=== PATIENT | female | born 1985 | race Hispanic/Latino ===

== ENCOUNTER 2018-06-21 20:44 | Inpatient (IN) | payer BC ==
--- NOTE | 2018-06-22 04:28 | ED PDOC ---
HPI: Abdomen Time Seen by Provider: 06/22/18 04:00 Chief Complaint (Nursing): Abnormal Labs Chief Complaint (Provider): Abnormal Labs History Per: Patient History/Exam Limitations: no limitations Onset/Duration Of Symptoms: Days Current Symptoms Are (Timing): Still Present Additional Complaint(s): 33 y/o female with no significant PMHx presents to the ED for evaluation of epigastric abdominal pain associated with nausea, onset two weeks ago. Patient reports of having seen a GI specialist yesterday, had done outpatient labs and was started on golytely prep for an endoscopy and colonoscopy that is scheduled for later today. Patient states that earlier this evening, she had gotten a phone call from her GI specialist who requested her to come to the ER for further evaluation of an elevated lipase in the 1499s. GI specialist was concerned for pancreatitis as per patient. Patient notes pain has improved. Patient states she is not eating because of her impending procedure later today. Patient reports of experiencing mild diarrhea but is attributing it to golytely prep. Patient states symptoms have considerably improved others. Of note, patient reports of typically drinking close to a bottle of wine a day. Denies fever PMD: Tobi Motley Oracle Sql Developer: Dr. Moreno Past Medical History Reviewed: Historical Data, Nursing Documentation, Vital Signs Vital Signs: Last Vital Signs Temp 98.4 F 06/21/18 22:25 Pulse 93 H 06/21/18 22:25 Resp 16 06/21/18 22:25 BP 131/94 H 06/21/18 22:25 Pulse Ox 100 06/21/18 22:25 Primary Care Provider: Tobi Stover - Medical History PMH: No Chronic Diseases - Surgical History Surgical History: No Surg Hx - Family History Family History: States: Unknown Family Hx - Social History Alcohol: > 2 Drinks/Day - Home Medications Home Medications: Ambulatory Orders Medication Instructions Recorded Dextroamphetamine/Amphetamine 10 mg PO DAILY 06/22/18 [Adderall 10 mg Tablet] Dextroamphetamine/Amphetamine 25 mg PO DAILY 06/22/18 [Adderall Xr 25 mg Capsule] - Allergies Allergies/Adverse Reactions: Allergies Allergy/AdvReac Type Severity Reaction Status Date / Time No Known Allergies Allergy Verified 06/21/18 22:25 Review of Systems ROS Statement: Except As Marked, All Systems Reviewed And Found Negative Constitutional: Negative for: Fever Gastrointestinal: Positive for: Nausea, Abdominal Pain, Diarrhea Physical Exam - Reviewed Nursing Documentation Reviewed: Yes Vital Signs Reviewed: Yes - Physical Exam Appears: Positive for: No Acute Distress Head Exam: Positive for: ATRAUMATIC, NORMOCEPHALIC Skin: Positive for: Normal Color, Warm, Dry Eye Exam: Positive for: Normal appearance, EOMI, PERRL Neck: Positive for: Normal, Painless ROM, Supple Cardiovascular/Chest: Positive for: Regular Rate, Rhythm. Negative for: Murmur Respiratory: Positive for: Normal Breath Sounds. Negative for: Respiratory Distress Gastrointestinal/Abdominal: Positive for: Soft, Tenderness (mild epigastric tenderness) Extremity: Positive for: Normal ROM. Negative for: Deformity Neurological/Psych: Positive for: Awake, Alert, Oriented (x3). Negative for: Motor/Sensory Deficits - Laboratory Results Result Diagrams: 06/22/18 01:00 06/22/18 01:00 - ECG O2 Sat by Pulse Oximetry: 100 (RA) Pulse Ox Interpretation: Normal - Critical Care Total Time (In Min): 30 Documented Critical Care: Time excludes all time spent performint seperately billable procedures Medical Decision Making Medical Decision Making: Time: 0154 Impression: 33 y/o female presenting with acute pancreatits Plan: -- Lipase level may be trending down given improvement of symptoms. Repeat laps including lipase level and Gallbladder US ordered. Time: 0408 -- Repeat labs demonstrate no clinical abnormalities except for elevated lipase level that has double from lipase done as an outpatient. In providers opinion, results are still be may be trending down given that she reports little to no symptoms. -- 2 liters of Lactated Ringers ordered for aggressive IV fluid resuscitation. -- Patient referred to Dr. Lerner for admission. CT Abd/Pelvis ordered for further workup. CT SCAN OF THE ABDOMEN AND PELVIS WITH CONTRAST. CLINICAL HISTORY: Pancreatitis. Abnormal labs. TECHNIQUE: Multiple axial and coronal CT images were obtained through the abdomen and pelvis after administration of intravenous contrast material. COMMENTS: Minimal subsegmental atelectatic pulmonary changes in the left lower lobe. Mildly enlarged pancreas. Mild peripancreatic inflammatory fat stranding. Findings are suggestive of mild uncomplicated acute pancreatitis. Mild diffuse thickening of the stomach, probably reactive gastritis. Fluid-filled colon, probably reactive ileus. 2.3 cm right ovarian cyst. Fluid-filled small bowels. The liver is of uniform attenuation without mass or defect. There is no intra or extrahepatic biliary ductal dilatation. The spleen is normal. The gallbladder is within normal limits. There is no evidence of adrenal mass. Both kidneys demonstrate prompt and equal nephrograms. The kidneys are normal in size, shape and configuration. There is no evidence of renal or ureteral mass. No renal or ureteral calculi are identified. There is no hydroureter or hydronephrosis. No evidence for appendicitis. There is no bowel wall thickening. No evidence for small or large bowel obstruction. There is no evidence of abdominal ascites or lymphadenopathy. There is no evidence of intrinsic or extrinsic bladder mass. There is no pelvic ascites or lymphadenopathy. Images of the lung bases show no evidence of pleural or parenchymal mass. There are no pleural effusions. The bony structures are free of lytic or blastic lesions. IMPRESSION: Minimal subsegmental atelectatic pulmonary changes in the left lower lobe. Mildly enlarged pancreas. Mild peripancreatic inflammatory fat stranding. Findings are suggestive of mild uncomplicated acute pancreatitis. Mild diffuse thickening of the stomach, probably reactive gastritis. Fluid-filled colon, probably reactive ileus. 2.3 cm right ovarian cyst. Fluid-filled small bowels. Thank you for your kind referral of this patient. Electronically signed on June 22, 2018 6:27:06 AM EDT by: Lambert Diaz M.D., Certified by MIGDALIA, MSK, Neuroradiology Scribe Attestation: Documented by Zachariah Escobar, acting as a scribe for Best Quintana MD. Provider Scribe Attestation: All medical record entries made by the Scribe were at my direction and personally dictated by me. I have reviewed the chart and agree that the record accurately reflects my personal performance of the history, physical exam, medical decision making, and the department course for this patient. I have also personally directed, reviewed, and agree with the discharge instructions and disposition. Disposition - Clinical Impression Clinical Impression: Pancreatitis, acute - Patient ED Disposition Is Patient to be Admitted: Yes - Disposition Disposition Time: 04:04 Condition: FAIR
[2018-06-22 04:41] LABS: BASO # 0.1 K/uL (0.0-0.2); EOS # 0.3 K/uL (0.0-0.7); HEMOGLOBIN 12.6 g/dL (12.0-16.0); LYMPH # 1.6 K/uL (1.0-4.3); LYMPH % 26.1 % (20.0-40.0); MEAN CELL VOLUME 94.2 fl (81.0-99.0); MEAN CORPUSCULAR HEMOGLOBIN 31.6 pg (27.0-31.0); MEAN CORPUSCULAR HGB CONC 33.5 g/dL (33.0-37.0); MEAN PLATELET VOLUME 7.9 fl (7.2-11.7); MONO # 0.5 K/uL (0.0-0.8); MONO % 8.3 % (0.0-10.0); NEUT # 3.8 K/uL (1.8-7.0); NEUT % 60.6 % (50.0-75.0); RED CELL DISTRIBUTION WIDTH 14.4 % (11.5-14.5); WHITE BLOOD COUNT 6.3 K/uL (4.8-10.8)
[2018-06-22 04:50] LABS: BLOOD UREA NITROGEN 8 mg/dl (7-17); CALCIUM 9.1 mg/dL (8.4-10.2); GFR NON-AFRICAN AMERICAN > 60
[2018-06-22 04:51] LABS: ALB/GLOB RATIO 1.3 (1.0-2.1); ALBUMIN 4.5 g/dL (3.5-5.0); ALT/SGPT 18 U/L (9-52); AST/SGOT 32 U/L (14-36); LIPASE 3027 U/L (23-300); SQUAMOUS EPITHIAL 1 /hpf (0-5); URINE BILIRUBIN NEGATIVE (NEGATIVE); URINE BLOOD SMALL (NEGATIVE); URINE CLARITY CLOUDY (Clear); URINE COLOR YELLOW (YELLOW); URINE GLUCOSE (UA) NEG (NEGATIVE); URINE LEUKOCYTE ESTERASE NEG Leu/uL (Negative); URINE PROTEIN 30 mg/dL (NEGATIVE); URINE UROBILINOGEN 0.2-1.0 mg/dL (0.2-1.0)
[2018-06-22] MEDS ORDERED: Iohexol 300 100 ML IJ ONE (05:33)
[2018-06-22] MEDS ORDERED: Sodium Chloride 0.9% 50 ML IV ONE (05:33)
--- NOTE | 2018-06-22 08:25 | CP.PCM.HP ---
<Vaibhav Arrington - Last Filed: 06/22/18 11:47> History of Present Illness - History of Present Illness History of Present Illness: This is 33 y/o F with No significant PMH admitted to [facility] for evaluation and treatment of Acute Pancreatitis. Patient is c/o epigastric pain with nausea since last 2 weeks and seen GI doctor for outpatient EGD and Colonoscopy. Patient was sent to the ER by GI after found to have high Lipase 1500. Patient currently reports improved pain but reports no appetite, denies any vomiting, diarrhea or fever. Patient denies any dysuria, weakness, cheat pain, SOB or dizziness. PMD: Tobi Motley Senior Controls Analyst: Dr. Moreno PMH: Denies PSH: Denies Allg: NKA Meds: Denies FH: Denies any Hx of GI cancer or pancreatitis SH: 1 bottle of wine daily ER course: VS: Afebrile, Stable Lipase 3017 CT abdo: mild uncomplicated acute pancreatitis Present on Admission - Present on Admission Any Indicators Present on Admission: No Review of Systems - Constitutional Constitutional: absent: Headache, Weakness - EENT Eyes: absent: Blurred Vision Ears: absent: Dizziness Nose/Mouth/Throat: absent: Nasal Congestion - Breasts Breasts: absent: Skin Changes - Cardiovascular Cardiovascular: absent: Chest Pain - Respiratory Respiratory: absent: Cough, Dyspnea, Hemoptysis - Gastrointestinal Gastrointestinal: Abdominal Pain, Nausea. absent: Diarrhea, Vomiting - Genitourinary Genitourinary: absent: Change in Urinary Stream, Dysuria - Musculoskeletal Musculoskeletal: absent: Back Pain, Neck Pain, Tingling - Neurological Neurological: absent: Dizziness, Sensory Deficit, Syncope, Tingling, Tremor, Vertigo, Weakness, Other Visual Disturbances Past Patient History - Past Medical History & Family History Past Medical History?: Yes - Past Social History Smoking Status: Former Smoker - CARDIAC Hx Cardiac Disorders: No - PULMONARY Hx Respiratory Disorders: No - NEUROLOGICAL Hx Neurological Disorder: No - HEENT Hx HEENT Problems: No - RENAL Hx Chronic Kidney Disease: No - ENDOCRINE/METABOLIC Hx Endocrine Disorders: No - HEMATOLOGICAL/ONCOLOGICAL Hx Blood Disorders: No Hx AIDS: No Hx Human Immunodeficiency Virus (HIV): No - INTEGUMENTARY Hx Dermatological Problems: No - MUSCULOSKELETAL/RHEUMATOLOGICAL Hx Musculoskeletal Disorders: No Hx Falls: No - GASTROINTESTINAL Hx Pancreatitis: Yes - GENITOURINARY/GYNECOLOGICAL Hx Genitourinary Disorders: No - PSYCHIATRIC Hx Substance Use: No - SURGICAL HISTORY Hx Surgeries: No - ANESTHESIA Hx Anesthesia: Yes Hx Anesthesia Reactions: No Hx Malignant Hyperthermia: No Has any member of the family had a problem w/ anesthesia?: No Meds Allergies/Adverse Reactions: Allergies Allergy/AdvReac Type Severity Reaction Status Date / Time No Known Allergies Allergy Verified 06/21/18 22:25 Physical Exam - Constitutional Appears: No Acute Distress - Head Exam Head Exam: ATRAUMATIC, NORMAL INSPECTION, NORMOCEPHALIC - Eye Exam Eye Exam: EOMI, Normal appearance, PERRL Pupil Exam: NORMAL ACCOMODATION - ENT Exam ENT Exam: Mucous Membranes Moist - Neck Exam Neck exam: Positive for: Normal Inspection - Respiratory Exam Respiratory Exam: Clear to Auscultation Bilateral, NORMAL BREATHING PATTERN - Cardiovascular Exam Cardiovascular Exam: REGULAR RHYTHM, +S1, +S2 - GI/Abdominal Exam GI & Abdominal Exam: Normal Bowel Sounds, Soft, Tenderness (Epigastric ) - Extremities Exam Extremities exam: Positive for: normal inspection - Back Exam Back exam: NORMAL INSPECTION - Neurological Exam Neurological exam: Alert, CN II-XII Intact, Oriented x3 - Psychiatric Exam Psychiatric exam: Normal Affect - Skin Skin Exam: Normal Color Results - Vital Signs Recent Vital Signs: Last Vital Signs Temp 98.1 F 06/22/18 07:02 Pulse 55 L 06/22/18 07:44 Resp 20 06/22/18 07:44 BP 110/76 06/22/18 07:02 Pulse Ox 99 06/22/18 07:44 - Labs Result Diagrams: 06/22/18 01:00 06/22/18 01:00 Labs: Laboratory Results - last 24 hr 06/22/18 06/22/18 06/22/18 01:00 01:00 01:00 WBC 6.3 RBC 4.00 Hgb 12.6 Hct 37.7 MCV 94.2 MCH 31.6 H MCHC 33.5 RDW 14.4 Plt Count 333 MPV 7.9 Neut % (Auto) 60.6 Lymph % (Auto) 26.1 Phillips % (Auto) 8.3 Eos % (Auto) 4.0 Baso % (Auto) 1.0 Neut # (Auto) 3.8 Lymph # (Auto) 1.6 Phillips # (Auto) 0.5 Eos # (Auto) 0.3 Baso # (Auto) 0.1 Sodium 136 Potassium 4.0 Chloride 98 Carbon Dioxide 27 Anion Gap 15 BUN 8 Creatinine 0.5 L Est GFR ( Amer) > 60 Est GFR (Non-Af Amer) > 60 Random Glucose 81 Calcium 9.1 Total Bilirubin 0.8 AST 32 ALT 18 Alkaline Phosphatase 50 Total Protein 7.9 Albumin 4.5 Globulin 3.4 Albumin/Globulin Ratio 1.3 Lipase 3027 H Urine Color Yellow Urine Clarity Cloudy Urine pH 5.0 Ur Specific [place] 1.023 Urine Protein 30 Urine Glucose (UA) Neg Urine Ketones 20 Urine Blood Small Urine Nitrate Negative Urine Bilirubin Negative Urine Urobilinogen 0.2-1.0 Ur Leukocyte Esterase Neg Urine RBC (Auto) 5 H Urine Microscopic WBC 2 Ur Squamous Epith Cells 1 Assessment & Plan - Assessment and Plan (Free Text) Assessment: A/P: 33 y/o F with No significant PMH admitted to [facility] for evaluation and treatment of Acute Pancreatitis. Acute Pancreatitis - VS: Afebrile, Stable - Lipase 3017 - CT abdo: mild uncomplicated acute pancreatitis - Consult GI, f/u recommendations - NPO, C/w IVF - Monitor Lipase, F/u Abdo U/S - C/w pain management - F/u Lipids - Zofran PRN Case discussed with Dr. Lerner <Gerald Lerner - Last Filed: 06/22/18 11:55> Results - Vital Signs Recent Vital Signs: Last Vital Signs Temp 98.1 F 06/22/18 08:27 Pulse 55 L 06/22/18 08:27 Resp 20 06/22/18 08:27 BP 137/90 06/22/18 08:27 Pulse Ox 99 06/22/18 08:27 - Labs Result Diagrams: 06/22/18 01:00 06/22/18 01:00 Labs: Laboratory Results - last 24 hr 06/22/18 06/22/18 06/22/18 01:00 01:00 01:00 WBC 6.3 RBC 4.00 Hgb 12.6 Hct 37.7 MCV 94.2 MCH 31.6 H MCHC 33.5 RDW 14.4 Plt Count 333 MPV 7.9 Neut % (Auto) 60.6 Lymph % (Auto) 26.1 Phillips % (Auto) 8.3 Eos % (Auto) 4.0 Baso % (Auto) 1.0 Neut # (Auto) 3.8 Lymph # (Auto) 1.6 Phillips # (Auto) 0.5 Eos # (Auto) 0.3 Baso # (Auto) 0.1 Sodium 136 Potassium 4.0 Chloride 98 Carbon Dioxide 27 Anion Gap 15 BUN 8 Creatinine 0.5 L Est GFR ( Amer) > 60 Est GFR (Non-Af Amer) > 60 Random Glucose 81 Calcium 9.1 Total Bilirubin 0.8 AST 32 ALT 18 Alkaline Phosphatase 50 Total Protein 7.9 Albumin 4.5 Globulin 3.4 Albumin/Globulin Ratio 1.3 Triglycerides Cholesterol LDL Cholesterol Direct HDL Cholesterol Lipase 3027 H Urine Color Yellow Urine Clarity Cloudy Urine pH 5.0 Ur Specific [place] 1.023 Urine Protein 30 Urine Glucose (UA) Neg Urine Ketones 20 Urine Blood Small Urine Nitrate Negative Urine Bilirubin Negative Urine Urobilinogen 0.2-1.0 Ur Leukocyte Esterase Neg Urine RBC (Auto) 5 H Urine Microscopic WBC 2 Ur Squamous Epith Cells 1 Alcohol, Quantitative 06/22/18 08:40 WBC RBC Hgb Hct MCV MCH MCHC RDW Plt Count MPV Neut % (Auto) Lymph % (Auto) Phillips % (Auto) Eos % (Auto) Baso % (Auto) Neut # (Auto) Lymph # (Auto) Phillips # (Auto) Eos # (Auto) Baso # (Auto) Sodium Potassium Chloride Carbon Dioxide Anion Gap BUN Creatinine Est GFR ( Amer) Est GFR (Non-Af Amer) Random Glucose Calcium Total Bilirubin AST ALT Alkaline Phosphatase Total Protein Albumin Globulin Albumin/Globulin Ratio Triglycerides 65 Cholesterol 120 LDL Cholesterol Direct 54 HDL Cholesterol 55 Lipase 6005 H Urine Color Urine Clarity Urine pH Ur Specific [place] Urine Protein Urine Glucose (UA) Urine Ketones Urine Blood Urine Nitrate Urine Bilirubin Urine Urobilinogen Ur Leukocyte Esterase Urine RBC (Auto) Urine Microscopic WBC Ur Squamous Epith Cells Alcohol, Quantitative < 10 Assessment & Plan - Assessment and Plan (Free Text) Assessment: Patient was personally seen and examined by me in rounds with residents. Available labs and diagnostic data reviewed. Case, Patient's condition and management plan discussed with residents in rounds. Agree with resident's progress note. Plan: As ordered.
[2018-06-22 09:16] LABS: HDL CHOLESTEROL 55 MG/DL (30-70)
--- NOTE | 2018-06-22 09:25 | CT ---
Date of service: 06/22/2018 PROCEDURE: CT Abdomen and Pelvis with contrast HISTORY: pancreatitis COMPARISON: None. TECHNIQUE: Contrast dose: 85 mL Omnipaque 300 Radiation dose: Total exam DLP = 225.87 mGy-cm. This CT exam was performed using one or more of the following dose reduction techniques: Automated exposure control, adjustment of the mA and/or kV according to patient size, and/or use of iterative reconstruction technique. FINDINGS: LOWER THORAX: Left lung base subsegmental discoid atelectasis LIVER: Apparent mild diffuse hepatic steatosis No gross lesion or ductal dilatation. GALLBLADDER AND BILE DUCTS: Unremarkable. PANCREAS: Mild diffuse prominence-given the clinical history-findings compatible with a swelling/pancreatitis. No gross lesion or ductal dilatation. SPLEEN: Unremarkable. ADRENALS: Unremarkable. No mass. KIDNEYS AND URETERS: Unremarkable. No hydronephrosis. No solid mass. VASCULATURE: Unremarkable. No aortic aneurysm. No aortic atherosclerotic calcification or mural plaque present. BOWEL: Dilated fluid-filled large bowel loops. Small bowel loops not as distended but also with fluid. No obstruction. No gross mural thickening. APPENDIX: Portions visualized appear normal. PERITONEUM: Unremarkable. No free fluid. No free air. LYMPH NODES: Unremarkable. No enlarged lymph nodes. BLADDER: Distended but otherwise unremarkable REPRODUCTIVE: Probable 2.5 cm right ovarian cyst. Smaller follicular appearing cystic changes in the left ovary. BONES: No acute fracture. OTHER FINDINGS: Stomach not particularly distended-however given its degree of distension a diffuse mild gastric mural thickening is a consideration. IMPRESSION: Findings compatible with an uncomplicated pancreatitis. No pancreatic masses. No gross significant appearing phlegmon seen. The fluid filled distended colon, the lesser fluid in the nondistended small bowel and the probable mild gastric mural thickening (yet under distended) may all be reactive to the pancreatitis. Reactive ileus and a mild reactive gastritis is compatible with this. Close clinical follow-up recommended. Other findings as above. Concordant results (preliminary interpretation) provided by [employer].
[2018-06-22 09:27] LABS: LDL CHOLESTEROL 54 mg/dL (0-129)
[2018-06-22 09:39] LABS: LIPASE 6005 U/L (23-300)
[2018-06-22] MEDS: Sodium Chloride 0.9% 1,000 ML IV SCH ×2 (09:55→20:29)
[2018-06-22] MEDS ORDERED: Sodium Chloride 0.9% 1,000 ML IV SCH (11:30)
--- NOTE | 2018-06-22 12:43 | US ---
Date of service: 06/22/2018 HISTORY: ORDER DOWN TIME COMPARISON: CT of the abdomen and pelvis with IV contrast performed 06/22/18 TECHNIQUE: Sonographic evaluation of the right upper quadrant of the abdomen. FINDINGS: LIVER: Measures 15.9 cm in length. Echogenic liver may be seen in setting of hepatic parenchymal disease or fatty infiltration. No focal hepatic mass identified. The main portal vein appears patent with normal directional flow. No intrahepatic bile duct dilatation. GALLBLADDER: No gallstones. No gallbladder wall thickening or pericholecystic edema. Negative sonographic Gan's sign as assessed by the burner shaft. COMMON BILE DUCT: Measures 2 mm. PANCREAS: Not well-visualized. RIGHT KIDNEY: Measures approximately 10.1 x 4.4 x 5.1 cm. No obstructing calculus or hydronephrosis identified. AORTA: Limited visualization appears grossly unremarkable. IVC: Limited visualization appears grossly unremarkable. OTHER FINDINGS: None . IMPRESSION: Echogenic liver may be seen in setting of hepatic parenchymal disease or fatty infiltration. Preliminary impression was provided by [email or web address].
[2018-06-22 15:02] LABS: BARBITURATES, UR NEGATIVE (NEGATIVE); BENZODIAZEPINES, UR NEGATIVE (NEGATIVE); OPIATES, UR NEGATIVE (NEGATIVE); PHENCYCLIDINE, UR NEGATIVE (NEGATIVE)
--- NOTE | 2018-06-22 15:24 | CP.PCM.CON ---
History of Present Illness - History of Present Illness History of Present Illness: 33 yo female admitted with epigastric abdominal pain and elevated lipase. Patient has been having pain since 2 Satturdays ago. Pain radiates to her back. She made an appt to see an MD and had bloodwork done. She was referred to the ER when her lipase came out very high. She drinks a bottle of wine daily though denies any other type of liquor. Her only med is adderall. No recent abdominal trauma or abdominal surgery. No abdominal pain now and she is hungry.. Review of Systems - Constitutional Constitutional: absent: Chills - EENT Eyes: absent: Blurred Vision Nose/Mouth/Throat: absent: Epistaxis - Breasts Breasts: absent: Pain - Cardiovascular Cardiovascular: absent: Chest Pain - Respiratory Respiratory: absent: Dyspnea - Gastrointestinal Gastrointestinal: As Per HPI - Genitourinary Genitourinary: absent: Change in Urinary Stream Past Patient History - Past Medical History & Family History Past Medical History?: Yes - Past Social History Smoking Status: Former Smoker - CARDIAC Hx Cardiac Disorders: No - PULMONARY Hx Respiratory Disorders: No - NEUROLOGICAL Hx Neurological Disorder: No - HEENT Hx HEENT Problems: No - RENAL Hx Chronic Kidney Disease: No - ENDOCRINE/METABOLIC Hx Endocrine Disorders: No - HEMATOLOGICAL/ONCOLOGICAL Hx Blood Disorders: No Hx AIDS: No Hx Human Immunodeficiency Virus (HIV): No - INTEGUMENTARY Hx Dermatological Problems: No - MUSCULOSKELETAL/RHEUMATOLOGICAL Hx Musculoskeletal Disorders: No Hx Falls: No - GASTROINTESTINAL Hx Pancreatitis: Yes - GENITOURINARY/GYNECOLOGICAL Hx Genitourinary Disorders: No - PSYCHIATRIC Hx Substance Use: No - SURGICAL HISTORY Hx Surgeries: No - ANESTHESIA Hx Anesthesia: Yes Hx Anesthesia Reactions: No Hx Malignant Hyperthermia: No Has any member of the family had a problem w/ anesthesia?: No Meds Allergies/Adverse Reactions: Allergies Allergy/AdvReac Type Severity Reaction Status Date / Time No Known Allergies Allergy Verified 06/21/18 22:25 - Medications Medications: Current Medications Acetaminophen (Tylenol 325mg Tab) 650 mg PO Q6 PRN PRN Reason: Pain, Mild (1-3) Acetaminophen (Tylenol 325mg Tab) 650 mg PO Q6 PRN PRN Reason: Fever >100.4 F Enoxaparin Sodium (Lovenox) 40 mg SC DAILY [facility]; Protocol Famotidine (Pepcid) 20 mg PO BID TAWANDA Sodium Chloride (Sodium Chloride 0.9%) 1,000 mls @ 150 mls/hr IV .Q6H40M [facility] Last Admin: 06/22/18 09:55 Dose: 150 mls/hr Sodium Chloride (Sodium Chloride 0.9%) 1,000 mls @ 999 mls/hr IV .Q1H1M [facility] Stop: 06/23/18 11:27 Last Admin: 06/22/18 11:40 Dose: 999 mls/hr Ketorolac Tromethamine (Toradol) 15 mg IVP Q6 PRN PRN Reason: Pain, moderate (4-7) Morphine Sulfate (Morphine) 1 mg IVP Q4 PRN PRN Reason: Pain, severe (8-10) Ondansetron HCl (Zofran Inj) 4 mg IVP Q6 PRN PRN Reason: Nausea/Vomiting Physical Exam - Constitutional Appears: No Acute Distress - Head Exam Head Exam: ATRAUMATIC - Eye Exam Eye Exam: Normal appearance - ENT Exam ENT Exam: Mucous Membranes Moist - Neck Exam Neck exam: Positive for: Normal Inspection - Respiratory Exam Respiratory Exam: Clear to Auscultation Bilateral, NORMAL BREATHING PATTERN - Cardiovascular Exam Cardiovascular Exam: REGULAR RHYTHM, +S1, +S2 - GI/Abdominal Exam GI & Abdominal Exam: Normal Bowel Sounds, Soft, Tenderness Results - Vital Signs Recent Vital Signs: Last Vital Signs Temp 98.1 F 06/22/18 08:27 Pulse 55 L 06/22/18 08:27 Resp 20 06/22/18 08:27 BP 137/90 06/22/18 08:27 Pulse Ox 99 06/22/18 08:27 - Labs Result Diagrams: 06/22/18 01:00 06/22/18 01:00 Labs: Laboratory Results - last 24 hr 06/22/18 06/22/18 06/22/18 01:00 01:00 01:00 WBC 6.3 RBC 4.00 Hgb 12.6 Hct 37.7 MCV 94.2 MCH 31.6 H MCHC 33.5 RDW 14.4 Plt Count 333 MPV 7.9 Neut % (Auto) 60.6 Lymph % (Auto) 26.1 [place] % (Auto) 8.3 Eos % (Auto) 4.0 Baso % (Auto) 1.0 Neut # (Auto) 3.8 Lymph # (Auto) 1.6 [place] # (Auto) 0.5 Eos # (Auto) 0.3 Baso # (Auto) 0.1 Sodium 136 Potassium 4.0 Chloride 98 Carbon Dioxide 27 Anion Gap 15 BUN 8 Creatinine 0.5 L Est GFR ( Amer) > 60 Est GFR (Non-Af Amer) > 60 Random Glucose 81 Calcium 9.1 Total Bilirubin 0.8 AST 32 ALT 18 Alkaline Phosphatase 50 Total Protein 7.9 Albumin 4.5 Globulin 3.4 Albumin/Globulin Ratio 1.3 Triglycerides Cholesterol LDL Cholesterol Direct HDL Cholesterol Lipase 3027 H Urine Color Yellow Urine Clarity Cloudy Urine pH 5.0 Ur Specific [place] 1.023 Urine Protein 30 Urine Glucose (UA) Neg Urine Ketones 20 Urine Blood Small Urine Nitrate Negative Urine Bilirubin Negative Urine Urobilinogen 0.2-1.0 Ur Leukocyte Esterase Neg Urine RBC (Auto) 5 H Urine Microscopic WBC 2 Ur Squamous Epith Cells 1 Urine Opiates Screen Urine Methadone Screen Ur Barbiturates Screen Ur Phencyclidine Scrn Ur Amphetamines Screen U Benzodiazepines Scrn U Oth Cocaine Metabols U Cannabinoids Screen Alcohol, Quantitative 06/22/18 06/22/18 08:40 13:55 WBC RBC Hgb Hct MCV MCH MCHC RDW Plt Count MPV Neut % (Auto) Lymph % (Auto) [place] % (Auto) Eos % (Auto) Baso % (Auto) Neut # (Auto) Lymph # (Auto) [place] # (Auto) Eos # (Auto) Baso # (Auto) Sodium Potassium Chloride Carbon Dioxide Anion Gap BUN Creatinine Est GFR ( Amer) Est GFR (Non-Af Amer) Random Glucose Calcium Total Bilirubin AST ALT Alkaline Phosphatase Total Protein Albumin Globulin Albumin/Globulin Ratio Triglycerides 65 Cholesterol 120 LDL Cholesterol Direct 54 HDL Cholesterol 55 Lipase 6005 H Urine Color Urine Clarity Urine pH Ur Specific [place] Urine Protein Urine Glucose (UA) Urine Ketones Urine Blood Urine Nitrate Urine Bilirubin Urine Urobilinogen Ur Leukocyte Esterase Urine RBC (Auto) Urine Microscopic WBC Ur Squamous Epith Cells Urine Opiates Screen Negative Urine Methadone Screen Negative Ur Barbiturates Screen Negative Ur Phencyclidine Scrn Negative Ur Amphetamines Screen Positive H U Benzodiazepines Scrn Negative U Oth Cocaine Metabols Negative U Cannabinoids Screen Negative Alcohol, Quantitative < 10 - Imaging and Cardiology CT scan - abdomen Status: Image reviewed by me, Report reviewed by me US - abdomen Status: Image reviewed by me, Report reviewed by me Assessment & Plan (1) Pancreatitis, acute Assessment and Plan: Acute pancreatitis. Risk factors include significant wine intake. Has been on Sdderall. Feels better now.despite rising Lipase level. Will advance to solid low fat diet. Maintain IV hydration and adequate analgesia. Labs in the AM> Status: Acute
[2018-06-22 16:39] VITALS: O2SAT 100
[2018-06-22] MEDS ORDERED: Pneumococcal 23-Valent Vaccine IM ONE (21:00)
[2018-06-23] MEDS: Sodium Chloride 0.9% 1,000 ML IV SCH (03:15)
[2018-06-23 04:48] VITALS: PULSE 76
[2018-06-23 07:27] LABS: BASO # 0.1 K/uL (0.0-0.2); BASO % 0.6 % (0.0-2.0); EOS # 0.3 K/uL (0.0-0.7); EOS % 3.3 % (0.0-4.0); HEMOGLOBIN 11.8 g/dL (12.0-16.0); LYMPH # 1.4 K/uL (1.0-4.3); MEAN CELL VOLUME 95.2 fl (81.0-99.0); MEAN CORPUSCULAR HEMOGLOBIN 31.9 pg (27.0-31.0); MEAN CORPUSCULAR HGB CONC 33.5 g/dL (33.0-37.0); MEAN PLATELET VOLUME 7.5 fl (7.2-11.7); MONO # 0.8 K/uL (0.0-0.8); MONO % 9.3 % (0.0-10.0); NEUT % 70.8 % (50.0-75.0); NRBC % 0.1 % (0.0-0.0); RBC 3.69 Mil/uL (3.80-5.20); RED CELL DISTRIBUTION WIDTH 14.2 % (11.5-14.5); WHITE BLOOD COUNT 8.5 K/uL (4.8-10.8)
[2018-06-23 07:44] LABS: ALB/GLOB RATIO 1.1 (1.0-2.1); ALBUMIN 3.4 g/dL (3.5-5.0); ALT/SGPT 23 U/L (9-52); AST/SGOT 21 U/L (14-36); BLOOD UREA NITROGEN 5 mg/dl (7-17); CALCIUM 8.2 mg/dL (8.4-10.2); GFR NON-AFRICAN AMERICAN > 60
[2018-06-23 08:04] LABS: LIPASE 5258 U/L (23-300)
[2018-06-23] MEDS ORDERED: Pneumococcal 23-Valent Vaccine IM ONE (08:40)
[2018-06-23] MEDS ORDERED: Enoxaparin 40 mg Syringe SC SCH (09:00)
[2018-06-23 09:05] VITALS: BP 125/78; RESP 20; TEMP 98.6
--- NOTE | 2018-06-23 09:07 | CP.PCM.DIS ---
Provider - Provider Date of Admission: 06/22/18 04:00 Attending physician: Gerald Lerner MD Primary care physician: PMD: Tobi Motley Laborer Hoisting: Dr. Moreno Consults: 06/22/18 08:58 Gastroenterology Consult Routine Comment: Consulting Provider: Antwan Dumont Consulting Physician: Antwan Dumont Reason for Consult: Acute pancreatitis Time Spent in preparation of Discharge (in minutes): 40 Diagnosis - Discharge Diagnosis (1) Pancreatitis, acute Status: Acute (2) Alcohol use Status: Chronic Hospital Course - Lab Results Lab Results: Most Recent Lab Values WBC 8.5 K/uL (4.8-10.8) 06/23/18 07:05 RBC 3.69 Mil/uL (3.80-5.20) L 06/23/18 07:05 Hgb 11.8 g/dL (12.0-16.0) L 06/23/18 07:05 Hct 35.2 % (34.0-47.0) 06/23/18 07:05 MCV 95.2 fl (81.0-99.0) 06/23/18 07:05 MCH 31.9 pg (27.0-31.0) H 06/23/18 07:05 MCHC 33.5 g/dL (33.0-37.0) 06/23/18 07:05 RDW 14.2 % (11.5-14.5) 06/23/18 07:05 Plt Count 305 K/uL (130-400) 06/23/18 07:05 MPV 7.5 fl (7.2-11.7) 06/23/18 07:05 Neut % (Auto) 70.8 % (50.0-75.0) 06/23/18 07:05 Lymph % (Auto) 16.0 % (20.0-40.0) L 06/23/18 07:05 [place] % (Auto) 9.3 % (0.0-10.0) 06/23/18 07:05 Eos % (Auto) 3.3 % (0.0-4.0) 06/23/18 07:05 Baso % (Auto) 0.6 % (0.0-2.0) 06/23/18 07:05 Neut # (Auto) 6.0 K/uL (1.8-7.0) 06/23/18 07:05 Lymph # (Auto) 1.4 K/uL (1.0-4.3) 06/23/18 07:05 [place] # (Auto) 0.8 K/uL (0.0-0.8) 06/23/18 07:05 Eos # (Auto) 0.3 K/uL (0.0-0.7) 06/23/18 07:05 Baso # (Auto) 0.1 K/uL (0.0-0.2) 06/23/18 07:05 Sodium 137 mmol/l (132-148) 06/23/18 07:05 Potassium 4.0 MMOL/L (3.6-5.0) 06/23/18 07:05 Chloride 104 mmol/L (98-107) 06/23/18 07:05 Carbon Dioxide 28 mmol/L (22-30) 06/23/18 07:05 Anion Gap 9 (10-20) L 06/23/18 07:05 BUN 5 mg/dl (7-17) L 06/23/18 07:05 Creatinine 0.5 mg/dl (0.7-1.2) L 06/23/18 07:05 Est GFR ( Amer) > 60 06/23/18 07:05 Est GFR (Non-Af Amer) > 60 06/23/18 07:05 Random Glucose 97 mg/dL (65-105) 06/23/18 07:05 Calcium 8.2 mg/dL (8.4-10.2) L 06/23/18 07:05 Phosphorus 3.3 mg/dl (2.5-4.5) 06/23/18 07:05 Magnesium 1.8 MG/DL (1.6-2.3) 06/23/18 07:05 Total Bilirubin 0.5 mg/dl (0.2-1.3) 06/23/18 07:05 AST 21 U/L (14-36) 06/23/18 07:05 ALT 23 U/L (9-52) 06/23/18 07:05 Alkaline Phosphatase 37 U/L (38-126) L D 06/23/18 07:05 Total Protein 6.3 G/DL (6.3-8.2) 06/23/18 07:05 Albumin 3.4 g/dL (3.5-5.0) L D 06/23/18 07:05 Globulin 3.0 gm/dL (2.2-3.9) 06/23/18 07:05 Albumin/Globulin Ratio 1.1 (1.0-2.1) 06/23/18 07:05 Triglycerides 65 mg/DL (0-149) 06/22/18 08:40 Cholesterol 120 mg/dL (0-199) 06/22/18 08:40 LDL Cholesterol Direct 54 mg/dL (0-129) 06/22/18 08:40 HDL Cholesterol 55 MG/DL (30-70) 06/22/18 08:40 Lipase 5258 U/L (23-300) H 06/23/18 07:05 Urine Color Yellow (YELLOW) 06/22/18 01:00 Urine Clarity Cloudy (Clear) 06/22/18 01:00 Urine pH 5.0 (5.0-8.0) 06/22/18 01:00 Ur Specific [place] 1.023 (1.003-1.030) 06/22/18 01:00 Urine Protein 30 mg/dL (NEGATIVE) 06/22/18 01:00 Urine Glucose (UA) Neg mg/dL (NEGATIVE) 06/22/18 01:00 Urine Ketones 20 mg/dL (NEGATIVE) 06/22/18 01:00 Urine Blood Small (NEGATIVE) 06/22/18 01:00 Urine Nitrate Negative (NEGATIVE) 06/22/18 01:00 Urine Bilirubin Negative (NEGATIVE) 06/22/18 01:00 Urine Urobilinogen 0.2-1.0 mg/dL (0.2-1.0) 06/22/18 01:00 Ur Leukocyte Esterase Neg Amy/uL (Negative) 06/22/18 01:00 Urine RBC (Auto) 5 /hpf (0-3) H 06/22/18 01:00 Urine Microscopic WBC 2 /hpf (0-5) 06/22/18 01:00 Ur Squamous Epith Cells 1 /hpf (0-5) 06/22/18 01:00 Urine Opiates Screen Negative (NEGATIVE) 06/22/18 13:55 Urine Methadone Screen Negative (NEGATIVE) 06/22/18 13:55 Ur Barbiturates Screen Negative (NEGATIVE) 06/22/18 13:55 Ur Phencyclidine Scrn Negative (NEGATIVE) 06/22/18 13:55 Ur Amphetamines Screen Positive (NEGATIVE) H 06/22/18 13:55 U Benzodiazepines Scrn Negative (NEGATIVE) 06/22/18 13:55 U Oth Cocaine Metabols Negative (NEGATIVE) 06/22/18 13:55 U Cannabinoids Screen Negative (NEGATIVE) 06/22/18 13:55 Alcohol, Quantitative < 10 mg/dl (0-10) 06/22/18 08:40 - Hospital Course Hospital Course: 33 y/o F with No significant PMH admitted to [facility] for evaluation and treatment of Acute Uncomplicated Pancreatitis on CT and elevated lipase. After admission, IVF started, U/S: No stones, GI was consulted, patient remained stable. Patient is asymptomatic this morning,, denies any n/v/f or abdominal pain.Patient is tolerating PO intake and clinically stable for d/c, cleared by GI. ER precautions discussed with patient, instructed to avoid alcohol. Patient understands and agrees with plan. Discharge Exam - Head Exam Head Exam: ATRAUMATIC, NORMOCEPHALIC - Eye Exam Eye Exam: Normal appearance, PERRL Pupil Exam: NORMAL ACCOMODATION - ENT Exam ENT Exam: Mucous Membranes Moist - Respiratory Exam Respiratory Exam: Clear to PA & Lateral, NORMAL BREATHING PATTERN, UNREMARKABLE - Cardiovascular Exam Cardiovascular Exam: REGULAR RHYTHM - GI/Abdominal Exam GI & Abdominal Exam: Normal Bowel Sounds, Soft. absent: Guarding, Rebound, Tenderness - Extremities Exam Extremities exam: normal inspection - Back Exam Back exam: absent: CVA tenderness (L), CVA tenderness (R) - Neurological Exam Neurological exam: Alert, CN II-XII Intact, Normal Gait, Oriented x3, Reflexes Normal - Psychiatric Exam Psychiatric exam: Normal Affect - Skin Skin Exam: Normal Color Discharge Plan - Follow Up Plan Condition: FAIR Disposition: HOME/ ROUTINE Instructions: Pancreatitis, Alcohol Use - When Is Drinking a Problem?, Low Cholesterol, Saturated Fat, and Trans Fat Diet , Pancreatitis (DC) Additional Instructions: F/u with PMD: Tobi Motley and Laborer Hoisting: Dr. Moreno in 1 week Spoke with GI, agrees with plan Avoid Alcohol Referrals: Tobi Stover MD [Primary Care Provider] -
--- NOTE | 2018-06-23 20:28 | CP.PCM.PN ---
Subjective - Date & Time of Evaluation Date of Evaluation: 06/23/18 Time of Evaluation: 08:00 - Subjective Subjective: Patient w/o abdominal pain and tolerating diet.. Has back pain which she has had in the past due to a back injury. Objective - Vital Signs/Intake and Output Vital Signs (last 24 hours): Temp Pulse Resp BP Pulse Ox 98.6 F 76 20 125/78 100 06/23/18 08:15 06/23/18 08:15 06/23/18 08:15 06/23/18 08:15 06/23/18 08:15 - Labs Labs: 06/23/18 07:05 06/23/18 07:05 - Head Exam Head Exam: ATRAUMATIC - Eye Exam Eye Exam: Normal appearance Pupil Exam: PERRL - ENT Exam ENT Exam: Normal Exam - Neck Exam Neck Exam: Full ROM - Respiratory Exam Respiratory Exam: Clear to Ausculation Bilateral - Cardiovascular Exam Cardiovascular Exam: REGULAR RHYTHM, +S1, +S2 - GI/Abdominal Exam GI & Abdominal Exam: Soft, Normal Bowel Sounds. absent: Tenderness Assessment and Plan (1) Pancreatitis, acute Assessment & Plan: Clinically doing well. Lipase has fallen to 5200 albumin is also decreased to 3.4. Stable for discharge. Should avoid alcohol. Has been on Adderall for several years and is less likely to be the cause of the pancreatitis. F/u as outpatient with private admissions evaluator. Status: Acute
== END 2018-06-23 11:15 | disposition home or self-care (01) | DRG 440 ==
LOC: H.ER 20:44 → H.ERHOLD 06-22 04:00 → H.PEDS 06-22 07:13
PROVIDERS: ADMIT Internal Medicine; ATTEND Internal Medicine
PROC: 3E0234Z Introduction of Serum, Toxoid and Vaccine into Muscle, Percutaneous Approach (ICD-10-PCS; principal; 2018-06-23)
DX: K85.90 Acute pancreatitis without necrosis or infection, unspecified (principal); Z72.89 Other problems related to lifestyle; Z87.891 Personal history of nicotine dependence; Y90.0 Blood alcohol level of less than 20 mg/100 ml; Z23 Encounter for immunization